=== PATIENT | female | born 1955 | race Caucasian/White ===

== ENCOUNTER 2017-01-19 06:33 | Emergency (ER) | payer OTHER ==
[~2017-01-19] VITALS: Ht 162.6 cm; Wt 76.4 kg
[~2017-01-19 06:33] MED LIST: CEPHALEXIN500 M1 PO; MAXALT10 MG PO; NEXIUM 20MG20 MG PO; PYRIDIUM 100MG100 MG PO; PYRIDIUM200 M1 PO
[2017-01-19 06:38] VITALS: TEMP 97.3
[2017-01-19 06:56] LABS: BASO # 0.1 (0.0-0.2); BASO % 0.8 % (0.0-2.0); EOS # 0.3 (0.0-0.7); EOS % 4.1 % (0-4.0); GRAN # 2.4 (1.4-6.5); GRAN % 38.9 % (42.2-75.2); HEMATOCRIT 42.9 % (37.0-47.0); HEMOGLOBIN 14.3 g/dl (12.5-16.0); LYMPH # 2.9 (1.2-3.4); LYMPH % 47.7 % (20.0-51.0); MEAN CELL VOLUME 88 fl (80.0-100.0); MEAN CORPUSCULAR HEMOGLOBIN 29 pg (27.0-31.0); MEAN CORPUSCULAR HGB CONC 33 g/dl (33.0-37.0); MEAN PLATELET VOLUME 10.7 fl (7.4-10.4); MONO # 0.5 (0.1-0.6); MONO % 8.3 % (1.7-9.3); PLATELET COUNT 308 K/mm3 (130-400); RED BLOOD COUNT 4.88 M/mm3 (4.10-5.30); REDCELL DISTRIBUTION WIDTH-CV 12.4 % (11.5-14.5)
[2017-01-19 07:05] LABS: INR 0.9 (0.8-3.0); PROTHROMBIN TIME 10.2 SECONDS (9.7-12.8)
[2017-01-19 07:06] LABS: ADJUSTED CALCIUM 9.2 mg/dL (8.4-10.2); ALANINE AMINOTRANSFERASE 41 U/L (9-52); ALBUMIN 4.1 gm/dL (3.5-5.0); ALKALINE PHOSPHATASE 68 U/L (50-136); ANION GAP 10 mmol/L (7-16); BILIRUBIN,TOTAL 0.6 mg/dL (0.0-1.0); BLOOD UREA NITROGEN 14 mg/dL (7-17); CALCIUM 9.3 mg/dL (8.4-10.2); CARBON DIOXIDE 24 mmol/L (22-30); CHLORIDE 105 mmol/L (98-107); CREATININE, serum 0.81 mg/dL (0.52-1.25); GLUCOSE 92 mg/dL (74-106); SODIUM 140 mmol/L (137-145); TOTAL PROTEIN 7.1 gm/dL (6.4-8.2)
[2017-01-19 07:08] LABS: PARTIAL THROMBOPLASTIN TIME 30.8 SECONDS (26.0-37.0)
[2017-01-19] MEDS ORDERED: NEXIUM 40MG40 MG PO (07:16)
[2017-01-19 07:20] LABS: TROPONIN-I < 0.012 ng/mL (0.000-0.034)
[2017-01-19 09:35] VITALS: BP 128/76; PULSE 85
== END 2017-01-19 09:37 | disposition home or self-care (01) ==
LOC: COL.ER 06:33
PROVIDERS: Family Medicine
DX: R07.89 Other chest pain (principal); K21.9 Gastro-esophageal reflux disease without esophagitis; Z90.710 Acquired absence of both cervix and uterus
CPT/HCPCS: J1885

== ENCOUNTER → 2017-02-20 | Outpatient (CLI) | payer OTHER ==
[~2017-02-20] MED LIST changes: +NEXIUM 40MG40 MG PO
== END ==
LOC: COL.RAD 02-13 12:02
DX: K80.40 Calculus of bile duct with cholecystitis, unspecified, without obstruction (principal)
CPT/HCPCS: A9537

== ENCOUNTER → 2017-04-22 | Outpatient (CLI) | payer OTHER | LOC: COL.VAS 13:25 | DX: M79.662 Pain in left lower leg (principal) ==

== ENCOUNTER → 2017-08-14 | Outpatient (CLI) | payer OTHER | LOC: MC.RAD 14:18 | DX: Z12.31 Encounter for screening mammogram for malignant neoplasm of breast (principal) ==

== ENCOUNTER 2019-02-22 10:25 | Outpatient (CLI) | payer OTHER ==
[~2019-02-22] VITALS: Ht 162.7 cm; Wt 77.5 kg
[2019-02-22] MEDS ORDERED: ALLEGRA 180MG180 MG PO (10:53)
[2019-02-22] MEDS ORDERED: PRILOSEC 20MG20 MG PO (10:56)
[2019-02-22 11:15] VITALS: BP 109/67; PULSE 64; TEMP 98.6
[2019-02-22 11:40] VITALS: BP 109/64; PULSE 64; TEMP 98.6
--- NOTE | 2019-02-22 12:11 | NUR ---
Discharge instructions given to pt.pt verbalizes understanding.Pt escorted out by this nurse.
[2019-02-22 12:12] VITALS: BP 108/81; PULSE 70
== END 2019-02-22 12:12 | disposition home or self-care (01) ==
LOC: COL.CAR 10:25
DX: R55 Syncope and collapse (principal); E78.5 Hyperlipidemia, unspecified; K21.9 Gastro-esophageal reflux disease without esophagitis; I60.9 Nontraumatic subarachnoid hemorrhage, unspecified

== ENCOUNTER → 2019-05-13 | Outpatient (CLI) | payer OTHER ==
[~2019-05-13] MED LIST changes: +ALLEGRA 180MG180 MG PO; +PRILOSEC 20MG20 MG PO
== END ==
LOC: MC.RAD 08:56
DX: Z12.31 Encounter for screening mammogram for malignant neoplasm of breast (principal)

== ENCOUNTER → 2020-11-16 | Outpatient (CLI) | payer OTHER | LOC: MC.RAD 11-08 14:00 | DX: Z12.31 Encounter for screening mammogram for malignant neoplasm of breast (principal) ==

== ENCOUNTER → 2023-06-04 | Outpatient (CLI) | payer MEDICARE, OTHER ==
[~2023-06-04] MED LIST changes: +ANTIVERT 25MG25 MG PO; +CENTRUM SILVER1 CTB PO; +EXCEDRIN1 TAB PO; +FLEXERIL5 MG PO; +MAG-OX 400400 MG/TAB PO; +MOTRIN 800800 MG/TAB PO; +TYLENOL 325MG325 MG PO
== END ==
LOC: MC.RAD 15:05
DX: Z12.31 Encounter for screening mammogram for malignant neoplasm of breast (principal)